=== PATIENT | male | born 1955 | race Caucasian/White ===

== ENCOUNTER → 2020-08-23 13:09 | Outpatient (CLI) | payer OTHER, SELFPAY ==
[2020-08-23 15:05] LABS: Calcium 9.5 mg/dL (8.4-10.2); Estimated Glomerular Filt Rate > 60.0 mL/min (>60); HEMOLYSIS < 15 (0-50); Phosphorous 3.7 mg/dL (2.3-3.7); Potassium 4.2 mmol/L (3.4-5.1); Uric Acid 4.4 mg/dL (3.5-8.5)
== END ==
PROVIDERS: Referring Provider Orthopaedic Surgery; Visit Provider Orthopaedic Surgery
DX: C91.10 Chronic lymphocytic leukemia of B-cell type not having achieved remission (principal)
CPT/HCPCS: 36415; 82310; 82565; 84100; 84132; 84550

== ENCOUNTER → 2020-08-24 06:56 | Outpatient (CLI) | payer OTHER, SELFPAY ==
[2020-08-24 08:16] LABS: Calcium 9.3 mg/dL (8.4-10.2); Estimated Glomerular Filt Rate > 60.0 mL/min (>60); HEMOLYSIS < 15 (0-50); Uric Acid 4.7 mg/dL (3.5-8.5)
== END ==
PROVIDERS: Referring Provider Orthopaedic Surgery; Visit Provider Orthopaedic Surgery
DX: C91.10 Chronic lymphocytic leukemia of B-cell type not having achieved remission (principal)
CPT/HCPCS: 36415; 82310; 82565; 84100; 84132; 84550